=== PATIENT | female | born 1970 | race American Indian/Alaskan Native ===

== ENCOUNTER 2018-10-09 18:08 | Emergency (ER) | payer OTHER ==
--- NOTE | 2018-10-09 18:17 | Emergency Department Report ---
Blank Doc - Documentation Documentation: This is a 48-year-old female that presents with URI symptoms. This initial assessment diagnostic orders/clinical plan/treatment(s) is/are subject to change based on patient's health status, clinical progression and re- assessment by fellow clinical providers in the ED. Further treatment and workup at subsequent clinical providers discretion. Patient/guardians urged not to elope from ED s their condition may be serious if not clinically assessed and managed. Initial orders include: 1-Patient sent to [facility] for further evaluation and treatment 2- CXR
--- NOTE | 2018-10-09 20:35 | XRay Report ---
FINAL REPORT EXAM: XR CHEST ROUTINE 2V HISTORY: cough TECHNIQUE: Frontal portable view of the chest Comparison: None FINDINGS: There is no evidence of focal infiltrate, pneumothorax or pleural fluid collection. The cardiomediastinal silhouette is normal in appearance. The bony structures are notable for dextrocurvature of the thoracic spine. IMPRESSION: 1. No evidence of an acute pulmonary process. 2. Dextrocurvature thoracic spine.
[2018-10-09] MEDS: ZOFRAN ORAL LIQ PO ONE ×2 (22:23→22:50)
--- NOTE | 2018-10-09 22:27 | Emergency Department Report ---
- General Chief Complaint: Upper Respiratory Infection Stated Complaint: FLU LIKE SYMPTOMS Time Seen by Provider: 10/09/18 18:16 Source: patient Mode of arrival: Ambulatory Limitations: No Limitations - History of Present Illness Initial Comments: Cynthia 8-year-old -[place] female comes to the emergency room complaining of flulike symptoms. She complains of congestion and fever cough body aches since yesterday. Patient reports that she is coughing so much to where she vomits. She reports the fevers been up and down. She reports all her symptoms started with sneezing. 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 Patient has a past medical history of hypertension and a hysterectomy. She has allergy to codeine. MD Complaint: cough, rhinorrhea, nasal congestion, other (Oddy aches) -: days(s) (1) Consistency: constant Improves With: nothing Worsens With: other (coughing) Associated Symptoms: fever, chills, myalgias, headache, rhinorrhea, nasal congestion, sore throat, cough Treatments Prior to Arrival: none - Related Data Previous Rx's Medication Instructions Recorded Last Taken Type Furosemide [Lasix] 20 mg PO DAILY #30 tablet 11/11/13 Unknown Rx Lisinopril [Zestril TAB] 20 mg PO QDAY #30 tablet 11/11/13 Unknown Rx Prednisone [Prednisone 10 mg 10 mg PO .TAPER #1 tab.ds.pk 11/11/13 Unknown Rx (6-Day Pack, 21 Tabs)] ALBUTEROL Inhaler (OR & NICU) 1 puff IH Q4-6H PRN #1 inha 10/09/18 Unknown Rx [ProAir HFA Inhaler] Benzonatate [Tessalon Perles] 100 mg PO Q8HR #21 capsule 10/09/18 Unknown Rx Ibuprofen [Motrin 600 MG tab] 600 mg PO Q8H PRN #30 tablet 10/09/18 Unknown Rx Oseltamivir [Tamiflu] 75 mg PO BID 5 Days #10 cap 10/09/18 Unknown Rx Allergies Allergy/AdvReac Type Severity Reaction Status Date / Time codeine Allergy Rash Verified 11/10/13 23:46 ED Review of Systems ROS: Stated complaint: FLU LIKE SYMPTOMS Other details as noted in HPI Comment: All other systems reviewed and negative ED Past Medical Hx - Past Medical History Hx Hypertension: Yes - Surgical History Additional Surgical History: hysterectomy - Social History Smoking Status: Current Every Day Smoker Substance Use Type: Alcohol - Medications Home Medications: Home Medications Medication Instructions Recorded Confirmed Last Taken Type Furosemide [Lasix] 20 mg PO DAILY #30 tablet 11/11/13 Unknown Rx Lisinopril [Zestril TAB] 20 mg PO QDAY #30 tablet 11/11/13 Unknown Rx Prednisone [Prednisone 10 mg 10 mg PO .TAPER #1 tab.ds.pk 11/11/13 Unknown Rx (6-Day Pack, 21 Tabs)] ALBUTEROL Inhaler (OR & NICU) 1 puff IH Q4-6H PRN #1 inha 10/09/18 Unknown Rx [ProAir HFA Inhaler] Benzonatate [Tessalon Perles] 100 mg PO Q8HR #21 capsule 10/09/18 Unknown Rx Ibuprofen [Motrin 600 MG tab] 600 mg PO Q8H PRN #30 tablet 10/09/18 Unknown Rx Oseltamivir [Tamiflu] 75 mg PO BID 5 Days #10 cap 10/09/18 Unknown Rx ED Physical Exam - General Limitations: No Limitations General appearance: alert, in no apparent distress - Head Head exam: Present: atraumatic, normocephalic - Eye Eye exam: Present: normal appearance - ENT ENT exam: Present: mucous membranes moist - Neck Neck exam: Present: normal inspection - Respiratory Respiratory exam: Present: other (course breath sounds). Absent: respiratory distress - Cardiovascular Cardiovascular Exam: Present: regular rate, normal rhythm. Absent: systolic murmur, diastolic murmur, rubs, gallop - GI/Abdominal GI/Abdominal exam: Present: soft, normal bowel sounds - Extremities Exam Extremities exam: Present: normal inspection - Back Exam Back exam: Present: normal inspection - Neurological Exam Neurological exam: Present: alert, oriented X3 - Psychiatric Psychiatric exam: Present: normal affect, normal mood - Skin Skin exam: Present: warm, dry, intact, normal color. Absent: rash ED Course Vital Signs 10/09/18 18:17 Temperature 98 F Pulse Rate 88 Respiratory 16 Rate Blood Pressure 157/96 O2 Sat by Pulse 100 Oximetry ED Medical Decision Making - Radiology Data Radiology results: report reviewed Ordering Physician: SARAY SALDANA NP Date of Service: 10/09/18 Procedure(s): XR chest routine 2V Accession Number(s): [id number] cc: SARAY SALDANA NP Fluoro Time In Minutes: FINAL REPORT EXAM: XR CHEST ROUTINE 2V HISTORY: cough TECHNIQUE: Frontal portable view of the chest Comparison: None FINDINGS: There is no evidence of focal infiltrate, pneumothorax or pleural fluid collection. The cardiomediastinal silhouette is normal in appearance. The bony structures are notable for dextrocurvature of the thoracic spine. IMPRESSION: 1. No evidence of an acute pulmonary process. 2. Dextrocurvature thoracic spine. Transcribed By: ED Dictated By: GIFTY WANG MD Electronically Authenticated By: GIFTY WANG MD Signed Date/Time: 10/09/182034 DD/ 32 TD/TT: 10/09/182032 - Medical Decision Making Patient has been evaluated by this provider in [facility]. Patient was given a nebulizer treatment prednisone, Tessalon Perles. And Zofran. Patient be discharged home on Tamiflu and ibuprofen and Tessalon Perles. Critical care attestation.: If time is entered above; I have spent that time in minutes in the direct care of this critically ill patient, excluding procedure time. ED Disposition Clinical Impression: Flu-like symptoms Disposition: DC-01 TO HOME OR SELFCARE Is pt being admited?: No Does the pt Need Aspirin: No Condition: Stable Instructions: Viral Syndrome (ED) Additional Instructions: Please take all medications as prescribed. Increase her water intake a larger body to rest and follow-up with her primary care provider if his symptoms persist or gets worse. Prescriptions: ALBUTEROL Inhaler (OR & NICU) [ProAir HFA Inhaler] 1 puff IH Q4-6H PRN #1 inha PRN Reason: Cough Benzonatate [Tessalon Perles] 100 mg PO Q8HR #21 capsule Ibuprofen [Motrin 600 MG tab] 600 mg PO Q8H PRN #30 tablet PRN Reason: Pain Oseltamivir [Tamiflu] 75 mg PO BID 5 Days #10 cap Referrals: PRIMARY CARE, [Primary Care Provider] - 3-5 Days Forms: Work/School Release Form(ED)
[2018-10-09] MEDS ORDERED: DELTASONE PO ONE (22:34)
[2018-10-09] MEDS ORDERED: TESSALON PERLES PO ONE (22:34)
[2018-10-09] MEDS ORDERED: IBUPROFEN PO ONE (22:34)
[2018-10-09] MEDS ORDERED: PROVENTIL IH ONE (22:34)
[2018-10-09] MEDS ORDERED: ZOFRAN ODT ONE ×2 (22:36→22:47)
[2018-10-09] MEDS ORDERED: ZOFRAN ODT PO ONE (22:36)
[2018-10-10 00:02] VITALS: BP 158/94
== END 2018-10-10 00:03 | disposition home or self-care (01) ==
LOC: ED 18:08
DX: R05 Cough (principal); R50.9 Fever, unspecified; R09.81 Nasal congestion; R06.7 Sneezing; M79.18 Myalgia, other site; F17.200 Nicotine dependence, unspecified, uncomplicated; I10 Essential (primary) hypertension; Z90.710 Acquired absence of both cervix and uterus; Z88.5 Allergy status to narcotic agent
CPT/HCPCS: 71046; 94640; 99283; J7512; Q0162